=== PATIENT | male | born 1960 | race Caucasian/White ===

== ENCOUNTER 2016-07-20 20:01 | Emergency (ER) | payer SELFPAY ==
[~2016-07-20 20:01] MED LIST: DICL-86 PO; METH500T3 PO; Z.0.NO CURRENT MEDS
[2016-07-20 20:03] VITALS: BP 109/74; PULSE 78; RESP 16; TEMP 97.9; O2SAT 97
[2016-07-20] MEDS ORDERED: ANTICRE6 (20:08)
[2016-07-20] MEDS ORDERED: CLIN1CAP6 PO (20:09)
--- NOTE | 2016-07-20 21:35 | PD ---
HPI Chief Complaint: Oral / Dental Pain or Problem Time Seen by Provider: 21:32 Travel History International Travel<30 days: No Contact w/Intl Traveler<30days: No Traveled to known affect area: No History of Present Illness HPI 56-year-old white male presents to emergency department with complains of a dental abscess. He's been seen by his primary care doctor who has started him on clindamycin. He has been referred to a oral surgeon. He states that he cannot get in for another 3 weeks. He states that his initial dentist wanted to pull the tooth but he does not do needles. He states that the area on his daughter was soft but now has become firmer. She denies any fever or chills. Pain is mild. No swelling of the throat. No difficulty swallowing. History Past Medical Histgory Medical History: Denies Significant Hx Tetanus Vaccination: < 5 Years Past Surgical History Surgical History: No Previous Surgery Social History Alcohol Use: Yes Tobacco Use: Yes Allergies-Medications (Allergen,Severity, Reaction): Coded Allergies: No Known Allergies (Verified , 07/20/16) Reported Meds & Prescriptions Reported Meds & Active Scripts Active Reported Clindamycin (Clindamycin HCl) 300 Mg Cap 300 Mg PO Q6H Review of Systems Except as stated in HPI: all other systems reviewed are Neg General / Constitutional: No: Fever, Chills Eyes: No: Diploplia, Blurred Vision HENT: Positive: Dental Difficulties, No: Sore Throat, Gingival Bleeding, Earache Cardiovascular: No: Chest Pain or Discomfort, Palpitations Respiratory: No: Cough, Shortness of Breath Gastrointestinal: No: Nausea, Vomiting Physical Exam Narrative GENERAL: Well-developed, well-nourished in no acute distress. Nontoxic appearing. HEAD: Normocephalic, atraumatic. EYES: Pupils equal round and reactive. Extraocular motions intact. No scleral icterus. No injection or drainage. ENT: TMs clear without erythema. The external auditory canals clear. Nose: clear . Posterior pharynx is pink and moist. No tonsillar edema or exudate. Uvula midline. Airway patent. Patient has a dental abscess involving tooth # 29. The tooth is loose. There is a large dental cavity in it. There is an obvious dental abscess. Patient has a 1.5 x 1.5 cm firm nodular area on the right lower mandible in the area of tooth #29. No facial cellulitis. NECK: Trachea midline.Supple, nontender, moves head freely. No central bony tenderness or spasm. CARDIOVASCULAR: Regular rate and rhythm without murmurs, gallops, or rubs. RESPIRATORY: Clear to auscultation. Breath sounds equal bilaterally. No wheezes , rales, or rhonchi. GASTROINTESTINAL: Abdomen soft, non-tender, nondistended. No hepato-splenomegaly , or palpable masses. No guarding. EXTREMITIES: No clubbing, cyanosis, or edema. No joint tenderness, effusion, or edema noted. BACK: Nontender without deformity or crepitance. No flank tenderness. Data Data Last Documented VS Vital Signs Date Time Temp Pulse Resp B/P Pulse Ox O2 Delivery O2 Flow Rate FiO2 07/20/16 20:03 97.9 78 16 109/74 97 Room Air MDM Medical Screen Exam Complete: Yes Emergency Medical Condition: No Differential Diagnosis MDM: Moderate Differential diagnoses: Dental abscess, dental caries, osteitis, cellulitis Narrative Course The patient is offered IM injection of antibiotics which he has declined. A medical screening exam was performed: At the time of evaluation the presenting medical condition was determined not to be of an emergent nature. The patient was given the option of receiving additional care, but declined. Patient was given options for additional community resources from which to obtain care. The Patient Has Been advised to seek medical attention for their presenting complaint. The patient has been advised to return to the ER at any time if an emergent condition develops. Primary Impression: Encounter for medical screening examination Condition: Tanner Bazan Jul 20, 2016 21:35
== END 2016-07-20 21:42 | disposition left against medical advice (07) ==
LOC: NEPB 20:01
DX: K04.7 Periapical abscess without sinus (principal)
CPT/HCPCS: 99281